=== PATIENT | male | born 1995 | race Caucasian/White ===

== ENCOUNTER 2018-07-09 17:49 | Emergency (ER) | payer BC ==
[2018-07-09 17:56] VITALS: BP 120/65
[2018-07-09] MEDS ORDERED: NS 1,000 ML IV ONE (18:08)
--- NOTE | 2018-07-09 18:08 | EDPHY ---
H & P Time Seen by Provider: 07/09/18 18:00 HPI/ROS: Chief complaint. Syncope HPI. 23-year-old male presents emergency department after having a passing out episode 3 nights ago. He did his 1st time workout in a long time 3 nights ago. He felt well during the workout. At home he was stretching and lifting his arms over his head. He began to feel lightheaded and dizzy. He tried to sit down but passed out woke on the floor. He struck the right eye area and has a bruise. He has no headache. No neck pain. No visual change. No oral pharyngeal or dental trauma. No previous passing out. Not sick. No fever cough. No previous syncope. No chest pain or shortness of breath. No abdominal pain. ROS 10 systems were reviewed and negative with the exception of the elements mentioned in the history of present illness Past Medical/Surgical History: Mood disorder Social History: Single, daily smoker, no alcohol Smoking Status: Current every day smoker Physical Exam: General Appearance: Male mild distress vital signs are stable Eyes: Pupils equal and round no pallor or injection. No restriction of gaze with extraocular movement testing ENT, no hemotympanum or Quinteros sign. No oral pharyngeal or dental trauma. Respiratory: There are no retractions, lungs are clear to auscultation. Cardiovascular: Regular rate and rhythm. Gastrointestinal: Abdomen is soft and nontender, no masses, bowel sounds normal. Neurological: Awake and alert, sensory and motor exams grossly normal. Skin: Mild bruise to the right a lateral aspect of the skin next to the eye. Musculoskeletal: Neck is supple nontender. Extremities symmetrical, full range of motion. Psychiatric: Patient is oriented X 3, there is no agitation. Constitutional: Initial Vital Signs Temperature (C) 37 C 07/09/18 17:53 Heart Rate 79 07/09/18 17:53 Respiratory Rate 18 07/09/18 17:53 Blood Pressure 120/65 07/09/18 17:53 O2 Sat (%) 95 07/09/18 17:53 O2 Delivery Mode Room Air Allergies/Adverse Reactions: No Known Allergies Allergy (Unverified 07/09/18 17:53) Home Medications: Medication Instructions Recorded Effexor Xr 07/09/18 Medical Decision Making - Diagnostics EKG Interpretation: EKG interpreted by me shows normal sinus rhythm normal interval and axis. QRS is normal there is no significant ST elevation or depression. No arrhythmia. The rate is 71 Procedures: IV normal saline, monitor ED Course/Re-evaluation: Re-evaluation 7:00 p.m.. Patient is without symptoms. He and discussed laboratory an EKG evaluation. We discussed treatment plan including criteria for return importance of follow-up and further. He expresses understanding and agreement Differential Diagnosis: No evidence for concussion, facial fractures, skull fracture, intracranial bleeding. I considered acute coronary syndrome, electrolyte abnormalities. This appears to be working out to hard and then syncopal episode possibly associated with dehydration. Normal workup in the emergency department - Data Points Laboratory Results: Laboratory Results 07/09/18 18:30 07/09/18 18:30 07/09/18 07/09/18 07/09/18 18:36 18:30 18:30 WBC 8.05 10^3/uL 10^3/uL (3.80-9.50) RBC 4.92 10^6/uL 10^6/uL (4.40-6.38) Hgb 15.1 g/dL g/dL (13.7-17.5) Hct 44.3 % % (40.0-51.0) MCV 90.0 fL fL (81.5-99.8) MCH 30.7 pg pg (27.9-34.1) MCHC 34.1 g/dL g/dL (32.4-36.7) RDW 12.2 % % (11.5-15.2) Plt Count 209 10^3/uL 10^3/uL (150-400) MPV 9.2 fL fL (8.7-11.7) Neut % (Auto) 62.0 % % (39.3-74.2) Lymph % (Auto) 28.8 % % (15.0-45.0) Archuleta % (Auto) 4.8 % % (4.5-13.0) Eos % (Auto) 3.4 % % (0.6-7.6) Baso % (Auto) 0.5 % % (0.3-1.7) Nucleat RBC Rel Count 0.0 % % (0.0-0.2) Absolute Neuts (auto) 4.99 10^3/uL 10^3/uL (1.70-6.50) Absolute Lymphs (auto) 2.32 10^3/uL 10^3/uL (1.00-3.00) Absolute Monos (auto) 0.39 10^3/uL 10^3/uL (0.30-0.80) Absolute Eos (auto) 0.27 10^3/uL 10^3/uL (0.03-0.40) Absolute Basos (auto) 0.04 10^3/uL 10^3/uL (0.02-0.10) Absolute Nucleated RBC 0.00 10^3/uL 10^3/uL (0-0.01) Immature Gran % 0.5 % % (0.0-1.1) Immature Gran # 0.04 10^3/uL 10^3/uL (0.00-0.10) Sodium 135 mEq/L mEq/L (135-145) Potassium 3.9 mEq/L mEq/L (3.5-5.2) Chloride 101 mEq/L mEq/L (97-110) Carbon Dioxide 26 mEq/l mEq/l (22-31) Anion Gap 8 mEq/L mEq/L (6-14) BUN 16 mg/dL mg/dL (7-23) Creatinine 1.0 mg/dL mg/dL (0.7-1.3) Estimated GFR > 60 Glucose 89 mg/dL mg/dL (70-100) Calcium 9.5 mg/dL mg/dL (8.5-10.4) POC Troponin I 0.00 ng/mL ng/mL (0.00-0.08) Medications Given: Discontinued Medications Sodium Chloride (Ns) 1,000 mls @ 0 mls/hr IV EDNOW ONE; Wide Open PRN Reason: Protocol Stop: 07/09/18 18:09 Last Admin: 07/09/18 18:31 Dose: 1,000 mls Point of Care Test Results: Chemistry 07/09/18 18:36 POC Troponin I 0.00 ng/mL ng/mL (0.00-0.08) Departure - Departure Disposition: Home, Routine, Self-Care Clinical Impression: Syncope Qualifiers: Syncope type: unspecified Qualified Code(s): R55 - Syncope and collapse Condition: Good Instructions: Syncope (ED) Additional Instructions: Easy activity. Drink plenty of fluids and stay hydrated. Gradually increased you're workout efforts. Return for another passing out episode, chest pain, fever, trouble breathing Follow-up with [facility] in 2 days for re-evaluation Referrals: JASMYN URBANO [Other] - As per Instructions [facility] [Clinic] - 2-3 days without fail
[2018-07-09 18:43] LABS: PLATELET COUNT 209 10^3/uL (150-400)
--- NOTE | 2018-07-09 23:26 | CPEKG ---
Test Reason : OPEN Blood Pressure : / mmHG Vent. Rate : 071 BPM Atrial Rate : 073 BPM P-R Int : 148 ms QRS Dur : 106 ms QT Int : 379 ms P-R-T Axes : 043 030 029 degrees QTc Int : 412 ms Sinus rhythm Confirmed by Kashmir De Anda ([id number]) on 07/09/2018 11:25:50 PM Referred By: Kashmir De Anda Confirmed By:Kashmir De Anda
== END 2018-07-09 19:22 | disposition home or self-care (01) ==
DX: R55 Syncope and collapse (principal); E86.9 Volume depletion, unspecified
CPT/HCPCS: 84484-ER